=== PATIENT | male | born 1985 | race African-American/Black ===

== ENCOUNTER 2021-10-01 08:36 | Emergency (ER) | payer OTHER ==
[2021-10-01 08:41] VITALS: BP 117/70; PULSE 72; TEMP 99.5; BMI 31.6
[2021-10-01] MEDS ORDERED: KETOROLAC TROMETHAMINE 60 MG/2 ML VIAL IM ONE (09:14)
[2021-10-01] MEDS ORDERED: KETOROLAC TROMETHAMINE 60 MG/2 ML VIAL ONE (09:17)
== END 2021-10-01 09:26 | disposition home or self-care (01) ==
LOC: JER 08:36 → JERFT 08:36
PROC: 3E023GC Introduction of Other Therapeutic Substance into Muscle, Percutaneous Approach (ICD-10-PCS; principal; 2021-10-01)
DX: S39.012A Strain of muscle, fascia and tendon of lower back, initial encounter (principal); V49.40XA Driver injured in collision with unspecified motor vehicles in traffic accident, initial encounter
CPT/HCPCS: 99284-25